=== PATIENT | female | born 1950 | race Caucasian/White ===

== ENCOUNTER 2016-09-07 22:41 | Emergency (ER) | payer MEDICARE ==
[2016-09-07 22:52] VITALS: BP 202/86
[2016-09-07] MEDS ORDERED: PSEUDOEPHEDRINE 30 MG TABLET PO STA (22:59)
[2016-09-07] MEDS ORDERED: AMOX/CLAV 875 MG/125 MG TABLET PO STA (22:59)
[2016-09-07] MEDS ORDERED: AMOX/CLAV 875 MG/125 MG TABLET PO ONE (23:02)
[2016-09-07] MEDS ORDERED: PSEUDOEPHEDRINE 30 MG TABLET PO ONE (23:02)
--- NOTE | 2016-09-07 23:09 | ED Physician Documentation ---
PD HPI HEENT - Stated complaint Stated Complaint: EAR PX, SINUS PX - Chief complaint Chief Complaint: Heent - History obtained from History obtained from: Patient - History of Present Illness Timing - onset: How many days ago (10) Timing - details: Gradual onset, Still present Location: Sinuses, Throat Associated symptoms: Congestion, Rhinorrhea. No: Fever Similar symptoms before: No diagnosis Recently seen: Not recently seen - Additional information Additional information: Patient is a 65 year old female presenting to the emergency department for nasal congestion and pain, and cough. patient states that for the last ten days she has had cough, cold and uri symptoms. Patient states that over the last few days she developed worsening facial pain and tenderness with worsening purulent discharge and pain behind her teeth. Review of Systems Constitutional: reports: Fever. denies: Myalgias Eyes: denies: Loss of vision, Photophobia, Irritation Ears: reports: Loss of hearing, Ear pain. denies: Drainage/discharge Nose: reports: Congestion, Sinus pressure / pain Throat: reports: Dental pain / toothache, Sore throat GI: denies: Abdominal Pain, Nausea, Vomiting : denies: Dysuria, Frequency, Hesitancy Skin: denies: Rash, Lesions Musculoskeletal: denies: Neck pain, Back pain, Extremity pain Neurologic: denies: Generalized weakness, Focal weakness Psychiatric: denies: Depressed Immunocompromised: denies: Immunocompromised PD PAST MEDICAL HISTORY - Past Medical History Cardiovascular: High cholesterol, Angina, [place] Endocrine/Autoimmune: Type 2 diabetes - Past Surgical History Past Surgical History: Yes General: Cholecystectomy, 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 - Present Medications Home Medications: Ambulatory Orders Medication Instructions Recorded Confirmed Amox/Clav 875/125 [Augmentin] 1 each PO Q12H #14 tablet 09/07/16 - Allergies Allergies/Adverse Reactions: Allergies Allergy/AdvReac Type Severity Reaction Status Date / Time morphine Allergy Unknown Verified 09/07/16 22:48 Penicillins Allergy Unknown Verified 09/07/16 22:48 sodium nitrite Allergy Headache Verified 09/07/16 22:48 codeine AdvReac Nausea Verified 09/07/16 22:48 - Social History Does the pt smoke?: Yes Smoking Status: Current some day smoker Does the pt drink ETOH?: No Does the pt have substance abuse?: No - Immunizations Immunizations are current?: Yes PD ED PE NORMAL - General General: Alert and oriented X 3, Well developed/nourished - HEENT HEENT: Atraumatic, PERRL - Neck Neck: Supple, no meningeal sign - Cardiac Cardiac: RRR, No murmur - Respiratory Respiratory: No respiratory distress, Clear bilaterally - Abdomen Abdomen: Soft, Non tender, Non distended - Derm Derm: Normal color, Warm and dry, No rash - Extremities Extremities: No deformity, No tenderness to palpate, Normal ROM s pain - Neuro Neuro: Alert and oriented X 3, manager education 2-12 intact, No motor deficit, No sensory deficit, Normal speech - Psych Psych: Normal mood, Normal affect PD ED PE EXPANDED - HEENT HEENT: R TM dull, L TM dull, Right frontal sinus TTP, Left frontal sinus TTP, Right maxillary sinus TTP, Left maxillary sinus TTP, Nasal congestion, Moist mucous membranes Results - Vitals Vitals: Vital Signs - 24 hr 09/07/16 22:45 Temperature 36.0 C L Heart Rate 64 Respiratory 16 Rate Blood Pressure 202/86 H O2 Saturation 97 Oxygen O2 Source Room air PD MEDICAL DECISION MAKING - ED course Complexity details: reviewed old records, re-evaluated patient, considered differential, d/w patient ED course: patient was seen and examined at bedside. Patient's findings were consistent with sinusitis. Patient was treated with psuedophed and augmentin. Patient required no further work up and was stable for discharge with outpatient follow up. Departure - Departure Disposition: 01 Home, Self Care Clinical Impression: Sinusitis Condition: Good Instructions: ED Sinusitis Abx Tx Follow-Up: primary,care provider [Other] - Within 1 week Prescriptions: Amox/Clav 875/125 [Augmentin] 1 each PO Q12H #14 tablet Comments: Your symptoms today are being caused by sinusitis. You had your first dose of antibiotics tonight and will need to take it for the next 7 days. You should take over the counter cough and decongestants. You should follow up with your pmd if your symptoms persist for more than a week. You may return to the emergency department at any time for new, worsening or uncontrollable symptoms.
== END 2016-09-07 23:19 | disposition home or self-care (01) ==
LOC: ED 22:41
DX: J32.9 Chronic sinusitis, unspecified (principal); E78.00 Pure hypercholesterolemia, unspecified; I25.2 Old myocardial infarction; E11.9 Type 2 diabetes mellitus without complications; F17.200 Nicotine dependence, unspecified, uncomplicated
CPT/HCPCS: 99283; A9270

== ENCOUNTER 2017-08-15 23:13 | Emergency (ER) | payer SELFPAY ==
[2017-08-16 00:34] LABS: BILIRUBIN,URINE NEGATIVE (NEGATIVE); GLUCOSE, URINE (UA) NEGATIVE (NEGATIVE); KETONES,URINE (UA) NEGATIVE (NEGATIVE); LEUKOCYTE ESTERASE, URINE NEGATIVE (NEGATIVE); NITRITE,URINE NEGATIVE (NEGATIVE); OCCULT BLOOD,URINE SMALL (NEGATIVE); PROTEIN,URINE >=300 mg/dL (NEGATIVE); UROBILINOGEN,URINE 0.2 (NORMAL) E.U./dL (NORMAL)
[2017-08-16 00:35] LABS: CLARITY,URINE CLEAR (CLEAR)
[2017-08-16 00:40] LABS: BACTERIA,URINE Rare /HPF (None Seen); CASTS, URINE 3-5 Hyaline Casts /LPF; SQUAMOUS EPITHELIAL CELL,UR MANY Squamous (<= Few)
[2017-08-16] MEDS ORDERED: AMOX/CLAV 875 MG/125 MG TABLET PO STA (00:47)
--- NOTE | 2017-08-16 00:51 | ED Physician Documentation ---
PD HPI HEENT - Stated complaint Stated Complaint: SORE THROAT,MARZENA EAR PAIN - Chief complaint Chief Complaint: General - History obtained from History obtained from: Patient - History of Present Illness Timing - onset: How many weeks ago (1) Timing - details: Gradual onset, Still present Location: Right ear, Left ear, Sinuses, Throat Worsens: Swall[place]ing Associated symptoms: Fever, Congestion Similar symptoms before: No diagnosis Recently seen: Clinic - Additional information Additional information: patient is a 66 year old female with no significant past medical history who is presenting to the emergency department for sinus pain, ear pain and sore throat. patient states that her symptoms have been going on for almost two weeks and they are getting progressively worse. patient saw her pmd who gave her "three extra strength pills" but she doesn't know what they are. Patient states that she is unsure of what her penicillin allergy is but her mother told her she had an allergy, but patient has taken amoxicillin without any problems. Review of Systems Constitutional: reports: Fever Eyes: denies: Discharge, Irritation Ears: reports: Ear pain Nose: reports: Rhinorrhea / runny nose, Congestion, Sinus pressure / pain Throat: reports: Sore throat Cardiac: denies: Chest pain / pressure Respiratory: reports: Cough. denies: Dyspnea, Wheezing GI: reports: Abdominal Pain. denies: Nausea, Vomiting, Constipation, Diarrhea : denies: Dysuria, Frequency Skin: denies: Rash, Lesions Neurologic: reports: Headache. 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 - Present Medications Home Medications: Ambulatory Orders Medication Instructions Recorded Confirmed Amox/Clav 875/125 [Augmentin] 1 each PO Q12H #14 tablet 09/07/16 Amox/Clav 875/125 [Augmentin] 1 each PO Q12H #14 tablet 08/16/17 - Allergies Allergies/Adverse Reactions: Allergies Allergy/AdvReac Type Severity Reaction Status Date / Time morphine Allergy Unknown Verified 08/15/17 23:26 Penicillins Allergy Unknown Verified 08/15/17 23:26 sodium nitrite Allergy Headache Verified 08/15/17 23:26 codeine AdvReac Nausea Verified 08/15/17 23:26 - Social History Does the pt smoke?: Yes Smoking Status: Current every day smoker Does the pt drink ETOH?: No Does the pt have substance abuse?: No - Immunizations Immunizations are current?: Yes - POLST Patient has POLST: No PD ED PE NORMAL - Vitals Vital signs reviewed: Yes - General General: Alert and oriented X 3 - Neck Neck: Supple, no meningeal sign - Cardiac Cardiac: RRR - Respiratory Respiratory: No respiratory distress, Clear bilaterally - Abdomen Abdomen: Soft, Non tender, Non distended - Derm Derm: Normal color, Warm and dry, No rash - Extremities Extremities: No deformity - Neuro Neuro: Alert and oriented X 3 Eye Opening: Spontaneous PD ED PE EXPANDED - HEENT HEENT: R TM red, R TM retracted, L TM retracted, Right maxillary sinus TTP, Left maxillary sinus TTP, Nasal congestion, Dry mucous membranes, Pharyngeal erythema. No: Tonsillar exudate Results - Vitals Vitals: Vital Signs - 24 hr 08/15/17 08/16/17 23:23 00:00 Temperature 36.9 C Heart Rate 73 Respiratory 17 17 Rate Blood Pressure 195/131 H O2 Saturation 98 Oxygen O2 Source Room air - Labs Labs: Laboratory Tests 08/15/17 08/15/17 23:20 23:59 Urine Color YELLOW Urine Clarity CLEAR Urine pH 6.0 Ur Specific [place] >=1.030 H Urine Protein >=300 H Urine Glucose (UA) NEGATIVE Urine Ketones NEGATIVE Urine Occult Blood SMALL H Urine Nitrite NEGATIVE Urine Bilirubin NEGATIVE Urine Urobilinogen 0.2 (NORMAL) Ur Leukocyte Esterase NEGATIVE Urine RBC 6-10 H Urine WBC 0-3 Ur Squamous Epith Cells MANY Squamous H Urine Bacteria Rare Urine Casts 3-5 Hyaline Casts Ur Microscopic Review INDICATED Urine Culture Comments NOT INDICATED Group A Strep Rapid POSITIVE H PD MEDICAL DECISION MAKING - ED course Complexity details: reviewed old records, reviewed results, re-evaluated patient , considered differential, d/w patient, d/w family ED course: Patient was seen and examined at bedside. rapid strep was performed. Urine was collected. patient's rapid strep was positive. Patient also had symptoms of sinusitis and was started on augmentin. (patient had taken it in the past without issue). Patient required no further work up at this time and was stable for discharge with outpatient follow up. Departure - Departure Disposition: 01 Home, Self Care Clinical Impression: Strep pharyngitis Condition: Good Instructions: ED Strep Pharyngitis Conf Follow-Up: Sang Mancuso MD [Primary Care Provider] - Within 3 Days Prescriptions: Amox/Clav 875/125 [Augmentin] 1 each PO Q12H #14 tablet Comments: Your strep test today was positive and you are being started on antibiotics. You can also take over the counter decongestants and cough medicine to help with your symptoms. You should follow up with your doctor if your symptoms don' t improve. You can take motrin or tylenol as needed for pain. You may return to the emergency department at any time for new, worsening or uncontrollable symptoms.
[2017-08-16 01:01] VITALS: BP 155/81
== END 2017-08-16 01:01 | disposition home or self-care (01) ==
LOC: ED 23:13
DX: J02.0 Streptococcal pharyngitis (principal); E78.00 Pure hypercholesterolemia, unspecified; I25.2 Old myocardial infarction; E11.9 Type 2 diabetes mellitus without complications; F17.200 Nicotine dependence, unspecified, uncomplicated
CPT/HCPCS: 81001; 87430; 99283; A9270; 81003; 87086

== ENCOUNTER 2017-09-08 00:48 | Emergency (ER) | payer SELFPAY ==
--- NOTE | 2017-09-08 01:30 | ED Physician Documentation ---
History of Present Illness - Stated complaint Stated Complaint: DIZZY,SINUS PRESSURE - Chief complaint Chief Complaint: Heent - History obtained from History obtained from: Patient - History of Present Illness Timing: How many weeks ago (8) - Additonal information Additional information: Patient is a 66 year old female presenting to the emergency department for multiple complaints. patient states that she moved back to the [facility] about 4 years ago. Patient states that since that time she has been sick. Patient states that she has had cough and post nasal drip for weeks now. patient also reports dizziness and shortness of breath with exertion. Review of Systems Constitutional: denies: Fever Eyes: denies: Photophobia Ears: denies: Ear pain, Drainage/discharge Nose: reports: Rhinorrhea / runny nose, Congestion, Sinus pressure / pain Cardiac: denies: Chest pain / pressure, Palpitations, Pedal edema Respiratory: reports: Dyspnea. 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 : None HEENT: None Psych: None Musculoskeletal: None Derm: None - Past Surgical History Past Surgical History: Yes General: Cholecystectomy, 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 - Present Medications Home Medications: Ambulatory Orders Medication Instructions Recorded Confirmed Albuterol Sulfate [Proair Hfa 1 - 2 puffs INH Q4H PRN 09/08/17 09/08/17 Inhaler] Lisinopril 5 mg PO DAILY 09/08/17 09/08/17 hydroCHLOROthiazide 25 mg PO DAILY 09/08/17 09/08/17 [Hydrochlorothiazide] - Allergies Allergies/Adverse Reactions: Allergies Allergy/AdvReac Type Severity Reaction Status Date / Time morphine Allergy Unknown Verified 08/15/17 23:26 Penicillins Allergy Unknown Verified 08/15/17 23:26 sodium nitrite Allergy Headache Verified 08/15/17 23:26 codeine AdvReac Nausea Verified 08/15/17 23:26 - Social History Does the pt smoke?: Yes Smoking Status: Current every day smoker Does the pt drink ETOH?: No Does the pt have substance abuse?: No - Immunizations Immunizations are current?: Yes - POLST Patient has POLST: No PD ED PE NORMAL - Vitals Vital signs reviewed: Yes - General General: Alert and oriented X 3, No acute distress - HEENT HEENT: Atraumatic - Neck Neck: Supple, no meningeal sign - Cardiac Cardiac: No murmur - Respiratory Respiratory: No respiratory distress - Abdomen Abdomen: Soft, Non tender, Non distended - Derm Derm: Normal color, Warm and dry, No rash - Extremities Extremities: No deformity, No edema, No calf tenderness / cord - Neuro Neuro: Alert and oriented X 3 Eye Opening: Spontaneous PD ED PE EXPANDED - Cardiac Cardiac: Karyn Results - Vitals Vitals: Vital Signs - 24 hr 09/08/17 09/08/17 00:53 02:30 Temperature 36.0 C L Heart Rate 65 58 L Respiratory 20 15 Rate Blood Pressure 183/96 H 173/88 H O2 Saturation 98 96 Oxygen O2 Source Room air - EKG (time done) 0150 Rate: Rate (enter#) (53) Rhythm: Other (sinus with mulitple pvcs) [place]: Normal QRS: LVH Ischemia: Non specific changes Compare to prior EKG: Old EKG unavailable Computer interpretation: Disagree with computer - Labs Labs: Laboratory Tests 09/08/17 09/08/17 09/08/17 01:41 01:41 01:41 WBC 7.6 RBC 4.40 Hgb 13.4 Hct 39.3 MCV 89.2 MCH 30.4 MCHC 34.1 RDW 14.1 Plt Count 167 MPV 8.8 Neut # 3.5 Lymph # 3.1 Mitchell # 0.6 Eos # 0.3 Baso # 0.1 Absolute Nucleated RBC 0.01 Nucleated RBC % 0.1 Sodium 137 Potassium 4.3 Chloride 104 Carbon Dioxide 22 Anion Gap 11.0 BUN 23 H Creatinine 1.0 Estimated GFR (MDRD) 56 L Glucose 204 H Calcium 9.3 Total Bilirubin 0.8 AST 26 ALT 20 Alkaline Phosphatase 78 Troponin I < 0.04 B-Natriuretic Peptide Total Protein 7.0 Albumin 3.7 Globulin 3.3 Albumin/Globulin Ratio 1.1 Lipase 47 Urine Color Urine Clarity Urine pH Ur Specific [place] Urine Protein Urine Glucose (UA) Urine Ketones Urine Occult Blood Urine Nitrite Urine Bilirubin Urine Urobilinogen Ur Leukocyte Esterase Urine RBC Urine WBC Ur Squamous Epith Cells Urine Crystals Urine Bacteria Ur Microscopic Review Urine Culture Comments 09/08/17 09/08/17 01:41 02:04 WBC RBC Hgb Hct MCV MCH MCHC RDW Plt Count MPV Neut # Lymph # [place] # Eos # Baso # Absolute Nucleated RBC Nucleated RBC % Sodium Potassium Chloride Carbon Dioxide Anion Gap BUN Creatinine Estimated GFR (MDRD) Glucose Calcium Total Bilirubin AST ALT Alkaline Phosphatase Troponin I B-Natriuretic Peptide 141 H Total Protein Albumin Globulin Albumin/Globulin Ratio Lipase Urine Color YELLOW Urine Clarity CLEAR Urine pH 5.5 Ur Specific [place] >=1.030 H Urine Protein 100 H Urine Glucose (UA) 100 H Urine Ketones NEGATIVE Urine Occult Blood NEGATIVE Urine Nitrite NEGATIVE Urine Bilirubin NEGATIVE Urine Urobilinogen 0.2 (NORMAL) Ur Leukocyte Esterase TRACE H Urine RBC 0-5 Urine WBC 0-3 Ur Squamous Epith Cells RARE Squamous Urine Crystals 26-50 Uric Acid Urine Bacteria None Seen Ur Microscopic Review INDICATED Urine Culture Comments INDICATED - Rads (name of study) chest x-ray Radiology: Final report received (normal) PD MEDICAL DECISION MAKING - ED course Complexity details: reviewed old records, reviewed results, re-evaluated patient , considered differential, d/w patient ED course: Patient was seen and examined at bedside. labs were drawn, urine was collected. ekg showed sinus karyn with multiple pvcs so patient was placed on a monitor. patient's labs were within normal limits. patient's chest x-ray showed no acute abnormalities. Patiet was made aware of the findings and the need for further outpatient follow up. Patient understood and agreed to the plan. Patient required no further work up and was stable for discharge with outpatient follow up. Departure - Departure Disposition: 01 Home, Self Care Clinical Impression: Dysrhythmia, cardiac Condition: Good Instructions: ED Holter Monitor Follow-Up: Sang Mancuso MD [Primary Care Provider] - Tomorrow Comments: Your blood work today was relatively unremarkable but your ekg had some abnormalities. It could be what's causing your dizziness. You will need to follow up with your doctor today. I would recommend a holter monitor, echocardiogram and a stress test. You should continue with your inhaler and over the counter cough and cold medications. You may return to the emergency department at any time for new, worsening or uncontrollable symptoms.
[2017-09-08 01:51] LABS: BASOPHILS # (AUTO) 0.1 10^3/uL (0.0-0.1); BASOPHILS % (AUTO) 1.1 %; EOSINOPHILS # (AUTO) 0.3 10^3/uL (0.0-0.7); EOSINOPHILS % (AUTO) 3.4 %; HGB - HEMOGLOBIN 13.4 g/dL (12.0-16.0); LYMPHOCYTES # (AUTO) 3.1 10^3/uL (1.5-3.5); LYMPHOCYTES % (AUTO) 41.5 %; MEAN CORPUSCULAR HEMOGLOBIN 30.4 pg (27.0-31.0); MEAN CORPUSCULAR HGB CONC 34.1 g/dL (32.0-36.0); MEAN CORPUSCULAR VOLUME 89.2 fL (81.0-99.0); MEAN PLATELET VOLUME 8.8 fL (7.9-10.8); MONOCYTES # (AUTO) 0.6 10^3/uL (0.0-1.0); MONOCYTES % (AUTO) 7.7 %; NEUTROPHILS # (AUTO) 3.5 10^3/uL (1.5-6.6); NEUTROPHILS % (AUTO) 46.3 %; PLT - PLATELET COUNT 167 10^3/uL (130-450); RED CELL DISTRIBUTION WIDTH 14.1 % (12.0-15.0); WHITE BLOOD COUNT 7.6 x10^3/uL (4.8-10.8)
--- NOTE | 2017-09-08 01:51 | XRAY Report ---
EXAM: CHEST RADIOGRAPHY EXAM DATE: 09/08/2017 01:43 AM. CLINICAL HISTORY: Short of breath and dizzy. COMPARISON: 01/05/2016. TECHNIQUE: 2 views. FINDINGS: Lungs/Pleura: No focal opacities evident. No pleural effusion. No pneumothorax. Normal volumes. Mediastinum: Heart and mediastinal contours are unremarkable. Other: Previous cervical surgery. IMPRESSION: No acute process seen in the chest. [facility] Referring Provider Line: [phone] SITE ID: [id number]
[2017-09-08 02:03] LABS: ALBUMIN 3.7 g/dL (3.2-5.5); ALBUMIN/GLOBULIN RATIO 1.1 (1.0-2.2); BILIRUBIN,TOTAL 0.8 mg/dL (0.2-1.0); CALCIUM 9.3 mg/dL (8.5-10.3)
[2017-09-08 02:15] LABS: BILIRUBIN,URINE NEGATIVE (NEGATIVE); GLUCOSE, URINE (UA) 100 mg/dL (NEGATIVE); KETONES,URINE (UA) NEGATIVE (NEGATIVE); LEUKOCYTE ESTERASE, URINE TRACE (NEGATIVE); NITRITE,URINE NEGATIVE (NEGATIVE); OCCULT BLOOD,URINE NEGATIVE (NEGATIVE); PH,URINE 5.5 PH (5.0-7.5); PROTEIN,URINE 100 mg/dL (NEGATIVE); UROBILINOGEN,URINE 0.2 (NORMAL) E.U./dL (NORMAL)
[2017-09-08 02:37] LABS: CLARITY,URINE CLEAR (CLEAR)
[2017-09-08 02:38] LABS: BACTERIA,URINE None Seen /HPF (None Seen); CRYSTALS,URINE 26-50 Uric Acid /LPF; RBC,URINE 0-5 /HPF (0-5); SQUAMOUS EPITHELIAL CELL,UR RARE Squamous (<= Few)
[2017-09-08 03:38] VITALS: BP 165/69
== END 2017-09-08 03:38 | disposition home or self-care (01) ==
LOC: ED 00:48
DX: I49.9 Cardiac arrhythmia, unspecified (principal); I48.91 Unspecified atrial fibrillation; I25.2 Old myocardial infarction; E78.00 Pure hypercholesterolemia, unspecified; E11.9 Type 2 diabetes mellitus without complications; F17.200 Nicotine dependence, unspecified, uncomplicated
CPT/HCPCS: 36415; 71046; 80053; 81001; 81003; 83690; 83880; 84484; 85025; 87086; 93005; 99283; 99285